=== PATIENT | female | born 1985 | race Caucasian/White ===

== ENCOUNTER → 2020-03-01 14:02 | Outpatient (BNVA) | payer BC, SELFPAY | PROVIDERS: PCP Internal Medicine; Visit Provider Obstetrics & Gynecology ==

== ENCOUNTER 2020-03-19 10:33 | Outpatient (REF) | payer BC, SELFPAY ==
[2020-03-19 13:40] LABS: MANUAL DIFF FLAG NO
[2020-03-19 13:49] LABS: Basophils Percent Auto 0.2 % (0-2); Eosinophils Percent Auto 0.9 % (0-4); Hematocrit 39.3 % (37-47); Hemoglobin 13.5 g/dl (12.0-16.0); Imm Gran Abs Auto 0.01 X10*3/uL (0.00-0.03); Imm Gran Pct Auto 0.2 % (0.0-0.4); Lymphocytes Absolute Auto 1.8 X10*3/uL (1.2-4.9); Lymphocytes Percent Auto 41.6 % (20-40); Mean Corpuscular HGB Conc 34.4 g/dl (31.0-35.0); Mean Corpuscular Hemoglobin 30.2 pg (27.0-33.0); Mean Corpuscular Volume 87.9 fL (80-98); Monocytes Absolute Auto 0.3 X10*3/uL (0.1-1.2); Monocytes Percent Auto 6.9 % (2-11); Neutrophils Absolute Auto 2.2 X10*3/uL (2.0-8.3); Neutrophils Percent Auto 50.2 % (45-73); Platelet Count 226 X10*3/uL (160-400); Red Blood Count 4.47 X10*6/uL (4.20-5.50); Red Cell Distribution Width 11.9 % (11.0-16.0); White Blood Count 4.3 X10*3/uL (4.8-10.8)
[2020-03-19 14:09] LABS: Glucose Urine UA NEG (NEG); Leukocyte Esterase Urine NEG (NEG); Nitrite Urine NEG (NEG); PH 5.5 (5.0-8.0); Specific Gravity - Urine 1.025 (1.005-1.025); Urine Blood NEG (NEG); Urine Ketones NEG (NEG); Urine Protein NEG (NEG-TRACE)
[2020-03-19 14:13] LABS: Appearance Urine CLEAR; Color Urine YELLOW
[2020-03-19 14:48] LABS: Alanine Aminotransferase 20 U/L (0-31); Albumin Level 4.6 g/dL (3.5-5.0); Alkaline Phosphatase 80 U/L (39-117); Anion Gap 11 (12-20); Aspartate Amino Transferase 21 U/L (5-31); Bilirubin Total 0.7 mg/dL (0.0-1.0); Blood Urea Nitrogen 20 mg/dL (9-16); C Reactive Protein 0.02 mg/dL (< or = 0.50); Calcium 9.4 mg/dL (8.4-10.2); Carbon Dioxide 27 mmol/L (22-29); Chloride 105 mmol/L (96-108); Estimated Glomerular Filt Rate > 60; Glucose Fasting 79 mg/dL (60-99); Potassium 4.1 mmol/L (3.3-5.1); Sodium 139 mmol/L (135-145); Total Protein 7.4 g/dL (6.5-8.0)
[2020-03-19 15:00] LABS: Free T4 (Free Thyroxine) 0.95 ng/dL (0.71-1.85)
[2020-03-19 15:01] LABS: Thyroid Stimulating Hormone 1.28 uIU/mL (0.32-4.0)
[2020-03-20 12:36] LABS: HIV RNA PCR Qn Copies <20 NOT DETECTED copies/mL (NOT DETECTED); HIV RNA PCR Qn Log Copies <1.30 NOT DETECTED (NOT DETECTED)
[2020-03-20 15:47] LABS: Follicle Stimulating Hormone 6.5 mIU/mL; Prolactin 12.8 ng/mL
[2020-03-21 02:17] LABS: C. trachomatis RNA TMA DETECTED (NOT DETECTED); N. gonorrhoeae RNA TMA NOT DETECTED (NOT DETECTED)
[2020-03-22 14:23] LABS: Syphilis Screen Nonreactive (Nonreactive)
[2020-03-22 16:03] LABS: Vitamin B12 836 pg/mL (200-900)
[2020-03-24 15:06] LABS: Progesterone 5.4 ng/mL
[2020-03-26 08:52] LABS: Estrogen 179.7 pg/mL
== END 2020-03-19 10:34 | disposition home or self-care (01) ==
LOC: HO.10HDL 10:33
PROVIDERS: Visit Provider Internal Medicine
DX: N94.6 Dysmenorrhea, unspecified (principal); R19.7 Diarrhea, unspecified; R53.83 Other fatigue
CPT/HCPCS: 36415; 80053; 81003; 82607; 82672; 83001; 83002; 84144; 84146; 84439; 84443; 85025; 86140; 86780; 87491; 87536; 87591

== ENCOUNTER 2020-03-23 08:01 | Outpatient (REF) | payer BC, SELFPAY ==
[2020-03-24 08:22] LABS: BV Int Neg Control Negative (Negative); BV Int Pos Control Positive (Positive)
[2020-03-25 17:07] LABS: HPV mRNA E6/E7 Not Detected (Not Detected)
== END 2020-03-23 08:02 | disposition home or self-care (01) ==
LOC: HO.LAB 08:01
PROVIDERS: PCP Internal Medicine; Visit Provider Obstetrics & Gynecology
DX: Z01.419 Encounter for gynecological examination (general) (routine) without abnormal findings (principal); A56.09 Other chlamydial infection of lower genitourinary tract; Z11.51 Encounter for screening for human papillomavirus (HPV)
CPT/HCPCS: 87480; 87510; 87624; 87660; 88142

== ENCOUNTER 2020-07-20 16:25 | Outpatient (REF) | payer BC, SELFPAY ==
[2020-07-20 18:19] LABS: Free T4 (Free Thyroxine) 0.79 ng/dL (0.71-1.85); Thyroid Stimulating Hormone 1.37 uIU/mL (0.32-4.0)
[2020-07-21 07:44] LABS: ~HepC Num1 0.07 S/CO (0.00-0.79); ~Hepatitis C Antibody Nonreactive (Nonreactive)
[2020-07-21 07:51] LABS: HBsAGNum1 0.17 S/CO (0.00-0.99); Hepatitis B Surface Antigen Negative (Negative)
[2020-07-21 10:02] LABS: Triiodothyronine T3 Total 68 ng/dL (76-181)
== END 2020-07-20 16:26 | disposition home or self-care (01) ==
LOC: HO.LAB 16:25
PROVIDERS: Obstetrics & Gynecology; PCP Internal Medicine; Visit Provider Obstetrics & Gynecology Reproductive Endocrinology
DX: A56.09 Other chlamydial infection of lower genitourinary tract (principal); D34 Benign neoplasm of thyroid gland
CPT/HCPCS: 36415; 84439; 84443; 84480; 86803; 87340

== ENCOUNTER 2020-08-16 08:49 | Outpatient (REF) | payer BC, SELFPAY ==
[2020-08-16 10:25] LABS: Free T4 (Free Thyroxine) 1.07 ng/dL (0.71-1.85); Thyroid Stimulating Hormone 0.08 uIU/mL (0.32-4.0)
[2020-08-17 18:36] LABS: Triiodothyronine T3 Free 3.1 pg/mL (2.3-4.2); Triiodothyronine T3 Total 63 ng/dL (76-181)
== END 2020-08-16 08:50 | disposition home or self-care (01) ==
LOC: HO.LAB 08:49
PROVIDERS: PCP Internal Medicine; Visit Provider Obstetrics & Gynecology Reproductive Endocrinology
DX: E03.9 Hypothyroidism, unspecified (principal)
CPT/HCPCS: 36415; 84439; 84443; 84480; 84481

== ENCOUNTER 2021-01-18 14:03 | Outpatient (REF) | payer BC, SELFPAY ==
[2021-01-18 16:51] LABS: Free T4 (Free Thyroxine) 0.86 ng/dL (0.71-1.85); Thyroid Stimulating Hormone 1.67 uIU/mL (0.32-4.0)
== END 2021-01-18 14:04 | disposition home or self-care (01) ==
LOC: HO.LAB 14:03
PROVIDERS: PCP Internal Medicine; Visit Provider Internal Medicine Endocrinology, Diabetes & Metabolism
DX: E05.90 Thyrotoxicosis, unspecified without thyrotoxic crisis or storm (principal)
CPT/HCPCS: 36415; 84439; 84443; 84481

== ENCOUNTER 2021-05-16 08:12 | Outpatient (REF) | payer BC, SELFPAY ==
[2021-05-16 14:50] LABS: CT PCR NOT DETECTED (Not Detect.); NG PCR NOT DETECTED (Not Detect.)
[2021-05-17 08:42] LABS: BV Int Neg Control Negative (Negative); BV Int Pos Control Positive (Positive)
[2021-05-19 02:51] LABS: HPV mRNA E6/E7 rflx Not Detected (Not Detected)
== END 2021-05-16 08:13 | disposition home or self-care (01) ==
LOC: HO.LAB 08:12
PROVIDERS: PCP Internal Medicine; Visit Provider Obstetrics & Gynecology
DX: Z01.411 Encounter for gynecological examination (general) (routine) with abnormal findings (principal); Z11.51 Encounter for screening for human papillomavirus (HPV); Z11.3 Encounter for screening for infections with a predominantly sexual mode of transmission; N87.0 Mild cervical dysplasia
CPT/HCPCS: 87480; 87491; 87510; 87591; 87624; 87660; 88142

== ENCOUNTER 2021-08-02 14:20 | Outpatient (REF) | payer BC, SELFPAY ==
[2021-08-03 07:41] LABS: HBsAGNum1 2.51 S/CO (0.00-0.99); HIV AB/AG Nonreactive (Nonreactive); HIV Num 1 0.89 S/CO (0.00-0.99); ~HepC Num1 0.05 S/CO (0.00-0.79); ~Hepatitis C Antibody Nonreactive (Nonreactive)
[2021-08-03 08:18] LABS: Syphilis Screen Nonreactive (Nonreactive)
[2021-08-03 10:37] LABS: HBsAGNum2 0.19; HBsAGNum3 0.2
[2021-08-03 10:38] LABS: Hepatitis B Surface Antigen Negative (Negative); Hepatitis B Surface Antigen Nonreactive (Negative)
== END 2021-08-02 14:21 | disposition home or self-care (01) ==
LOC: HO.LAB 14:20
PROVIDERS: Absent Provider Internal Medicine; PCP Internal Medicine; Visit Provider Obstetrics & Gynecology
DX: Z11.3 Encounter for screening for infections with a predominantly sexual mode of transmission (principal); Z11.4 Encounter for screening for human immunodeficiency virus [HIV]
CPT/HCPCS: 36415; 86780; 86803; 87340; 87389

== ENCOUNTER 2021-08-03 12:03 | Outpatient (REF) | payer BC, SELFPAY ==
[2021-08-03 14:38] LABS: CT PCR NOT DETECTED (Not Detect.); NG PCR NOT DETECTED (Not Detect.)
== END 2021-08-03 12:04 | disposition home or self-care (01) ==
LOC: HO.LNP 12:03
PROVIDERS: PCP Internal Medicine; Visit Provider Internal Medicine
DX: Z20.2 Contact with and (suspected) exposure to infections with a predominantly sexual mode of transmission (principal)
CPT/HCPCS: 87491; 87591

== ENCOUNTER 2021-12-19 15:25 | Outpatient (REF) | payer BC, SELFPAY ==
[2021-12-20 12:37] LABS: BV Int Neg Control Negative (Negative); BV Int Pos Control Positive (Positive)
== END 2021-12-19 15:26 | disposition home or self-care (01) ==
LOC: HO.LNP 15:25
PROVIDERS: Visit Provider Advanced Practice Midwife
DX: Z11.3 Encounter for screening for infections with a predominantly sexual mode of transmission (principal)
CPT/HCPCS: 87480; 87510; 87660

== ENCOUNTER 2021-12-19 15:40 | Outpatient (REF) | payer BC, SELFPAY ==
[2021-12-19 16:40] LABS: Hematocrit 38.1 % (37.0-47.0); Hemoglobin 12.9 g/dl (12.0-16.0); Mean Corpuscular HGB Conc 33.9 g/dl (31.0-35.0); Mean Corpuscular Hemoglobin 30.3 pg (27.0-33.0); Mean Corpuscular Volume 89.4 fL (80.0-98.0); Mean Platelet Volume 10.5 fL (9.4-12.3); Platelet Count 289 X10*3/uL (160-400); Red Blood Count 4.26 X10*6/uL (4.20-5.50); Red Cell Distribution Width 12.2 % (11.0-16.0); White Blood Count 7.5 X10*3/uL (4.8-10.8)
[2021-12-19 17:25] LABS: Syphilis Screen Nonreactive (Nonreactive)
[2021-12-20 04:53] LABS: CT PCR NOT DETECTED (Not Detect.); NG PCR NOT DETECTED (Not Detect.)
[2021-12-20 08:22] LABS: HBsAGNum1 0.26 S/CO (0.00-0.99); HIV AB/AG Nonreactive (Nonreactive); HIV Num 1 0.15 S/CO (0.00-0.99); Hepatitis B Surface Antigen Negative (Negative); ~HepC Num1 0.11 S/CO (0.00-0.79); ~Hepatitis C Antibody Nonreactive (Nonreactive)
== END 2021-12-19 15:41 | disposition home or self-care (01) ==
LOC: HO.LAB 15:40
PROVIDERS: PCP Internal Medicine; Visit Provider Advanced Practice Midwife
DX: Z11.3 Encounter for screening for infections with a predominantly sexual mode of transmission (principal)
CPT/HCPCS: 85027; 86780; 86803; 87340; 87389; 87491; 87591

== ENCOUNTER 2022-01-28 08:29 | Outpatient (REF) | payer BC, SELFPAY ==
[2022-01-28 10:07] LABS: Free T4 (Free Thyroxine) 0.84 ng/dL (0.71-1.85); Insulin 5 uU/mL (2-29); Thyroid Stimulating Hormone 1.37 uIU/mL (0.32-4.0)
[2022-02-03 13:47] LABS: IGF-1 (Somatomedin C) 171 ng/mL (53-331); IGF-1 Z Score (Female) 0.4 SD (-2.0 - +2.0); Triiodothyronine T3 Total 87 ng/dL (76-181)
== END 2022-01-28 08:30 | disposition home or self-care (01) ==
LOC: HO.LAB 08:29
PROVIDERS: PCP Internal Medicine; Visit Provider Internal Medicine
DX: R63.5 Abnormal weight gain (principal); E03.9 Hypothyroidism, unspecified; N94.6 Dysmenorrhea, unspecified
CPT/HCPCS: 36415; 83525; 84305; 84439; 84443; 84480

== ENCOUNTER 2022-01-31 09:18 | Outpatient (REF) | payer BC, SELFPAY ==
[2022-02-08 17:59] LABS: Saliva Cortisol <0.03 mcg/dL
== END 2022-01-31 09:19 | disposition home or self-care (01) ==
LOC: HO.LNP 09:18
PROVIDERS: Visit Provider Internal Medicine
DX: R63.5 Abnormal weight gain (principal); E03.9 Hypothyroidism, unspecified; N94.6 Dysmenorrhea, unspecified
CPT/HCPCS: 82530

== ENCOUNTER 2022-02-01 23:57 | Outpatient (REF) | payer BC, SELFPAY ==
[2022-02-10 17:07] LABS: Saliva Cortisol <0.03 mcg/dL
== END 2022-02-01 23:58 | disposition home or self-care (01) ==
LOC: HO.LNP 23:57
PROVIDERS: Visit Provider Internal Medicine
DX: R63.5 Abnormal weight gain (principal); E03.9 Hypothyroidism, unspecified; N94.6 Dysmenorrhea, unspecified
CPT/HCPCS: 82530

== ENCOUNTER 2022-02-02 09:16 | Outpatient (REF) | payer BC, SELFPAY | END 2022-02-02 09:17 | disposition home or self-care (01) | LOC: HO.LNP 09:16 | PROVIDERS: Visit Provider Internal Medicine | DX: Z13.89 Encounter for screening for other disorder (principal) ==

== ENCOUNTER 2022-08-29 14:44 | Outpatient (REF) | payer BC, SELFPAY ==
[2022-08-31 12:38] LABS: BV Int Neg Control Negative (Negative); BV Int Pos Control Positive (Positive)
[2022-08-31 13:39] LABS: CT PCR NOT DETECTED (Not Detect.); NG PCR NOT DETECTED (Not Detect.)
== END 2022-08-29 14:45 | disposition home or self-care (01) ==
LOC: HO.LNP 14:44
PROVIDERS: PCP Internal Medicine; Visit Provider Obstetrics & Gynecology
DX: Z20.2 Contact with and (suspected) exposure to infections with a predominantly sexual mode of transmission (principal)
CPT/HCPCS: 0353U; 87480; 87510; 87660

== ENCOUNTER 2022-08-29 14:44 | Outpatient (AMB) | payer BC, SELFPAY ==
--- NOTE | 2022-08-29 14:48 | MHC.OFFVIS ---
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 No complaints. The patient is requesting STD screen. Last Pap/HPV was negative in 05/10 [facility] Medical History GILBERT I (cervical intraepithelial neoplasia I) Hx of metrorrhagia Tiredness Surgical History History of lobectomy of thyroid Hx of arthroscopy of left knee Hx of arthroscopy of right knee Family History Maternal Grandmother Breast cancer Maternal Aunt Ovarian cancer Social History Alcohol intake: current Gender identity: Female Female Reproductive History Menstrual Age of Menarche: 17 Duration of menses: 8-10 days Date of last menstrual period: 08/02/22 control method: none Total pregnancies: 0 Date of last pap smear: 05/17/21 (negative) History of abnormal pap smear: Yes Review of Systems Const All systems reviewed & are unremarkable except as noted in HPI and below Card Reports as per HPI Resp Reports as per HPI GI Reports as per HPI and Reports no additional complaints Reports as per HPI Physical Exam Vital Signs: Last Vital Signs BP 114/62 08/29/22 14:49 BMI result Body Mass Index 24.4 Const General: cooperative, healthy appearing and comfortable Chest Chest palpation & inspection: normal inspection of the chest and normal palpation of entire chest wall Breast/axilla inspection: normal inspection of the breasts and normal inspection of the axillae Breast/axilla palpation: normal palpation of the breasts, normal palpation of the axillae and no axillary lymphadenopathy Resp Effort & Inspection: normal respiratory effort Auscultation: clear to auscultation bilaterally Percussion: percussion normal Cardio Palpation: normal PMI Rate: regular rate Rhythm: regular rhythm Heart sounds: no murmurs and no rubs Peripheral pulses: Peripheral pulses 2+ throughout GI Inspection: Yes normal to inspection Palpation (GI): Soft to palpation, nontender, no guarding, not rigid and No hepatosplenomegaly present Percussion: Yes normal to percussion Auscultation: normal bowel sounds Rectal Exam - Female: deferred General: Yes bladder normal to palpation External Female Exam: No lesion Speculum Exam - Vagina: normal appearance of the vagina, normal palpation, normal vaginal discharge and not erythematous Speculum Exam - Cervix: normal appearance of the cervix and normal palpation Bimanual exam- vagina & uterus: normal bimanual exam, normal palpation, uterine size normal, bladder normal to palpation, consistency normal and normal palpation Bimanual Exam- Adnexa, other: normal adnexae, no masses and no tenderness Assessment & Plan Assessment & Plan (1) Well woman exam: Comment: History of GILBERT 1 in 19 followed by negative co testing in 2020 and 2021 Code(s): Z01.419 - Encounter for gynecological examination (general) (routine) without abnormal findings Plan: Cotesting not indicated this year. Counseled the patient about the recommended dietary allowance of 1000 mg of Calcium & 600 IU of vitamin D. The patient was instructed to perform monthly self-breast exams and to schedule an annual exam in a year; All questions answered and the patient verbalized understanding. Instructed the patient to schedule annual exam in a year (2) Screen for STD (sexually transmitted disease): Code(s): Z11.3 - Encounter for screening for infections with a predominantly sexual mode of transmission Plan: STD screening tests done includes: BV panel for trichomonas, GC/CT will send patient for serology std screening for HIV, RPR, Hep b s Ag, HepC Ab. Orders: Orders Hepatitis B Surface Antigen Today Z20.2 - Contact with and (suspected) exposure to infections with a predominantly sexual mode of transmission Hepatitis C Antibody Today Z20.2 - Contact with and (suspected) exposure to infections with a predominantly sexual mode of transmission HIV Ab/Ag Today Z20.2 - Contact with and (suspected) exposure to infections with a predominantly sexual mode of transmission Syphilis Screen Today Z20.2 - Contact with and (suspected) exposure to infections with a predominantly sexual mode of transmission Coding Level of Care Code Est Pt Prev Care 18-39y(70251) Diagnoses Well woman exam Z01.419 Screen for STD (sexually transmitted disease) Z11.3
[2022-08-29 14:49] VITALS: BP 114/62; BMI 24.4
== END 2022-08-29 16:13 | disposition home or self-care (01) ==
LOC: HO.HWS 14:44
PROVIDERS: PCP Internal Medicine; Visit Provider Obstetrics & Gynecology
DX: Z01.419 Encounter for gynecological examination (general) (routine) without abnormal findings (principal); Z11.3 Encounter for screening for infections with a predominantly sexual mode of transmission
CPT/HCPCS: 99395

== ENCOUNTER 2023-01-29 13:33 | Outpatient (AMB) | payer BC, SELFPAY ==
--- NOTE | 2023-01-29 13:37 | MHC.OFFVIS ---
Intake Vital Signs 01/29/23 13:39 Height 5 ft 4 in Weight 145 lb BMI 24.9 BP 90/58 L Intake Visit Reasons: Vaginal odor Intake Note: Std testing, vaginal smell that is not normal for her Assistance Specialist Required: No Information Interpreted: non-clinical & clinical Professor Of Latin American Studies: Professor Of Latin American Studies Present (Aidyn) Allergies penicillin V Allergy (Unknown, Verified 01/29/23 13:42) hives Penicillins [PENICILLINS] Allergy (Unknown, Verified 01/29/23 13:42) HIVES CILANTRO Allergy (Unknown, Uncoded 01/29/23 13:42) GI UPSET chlorhexaidine Adverse Reaction (Mild, Uncoded 01/29/23 13:42) swelling Medication List - Last Reconciled 01/29/23 by Kelly Partida CNM dulaglutide (Trulicity) 0.75 mg subcut QWEEK thyroid (pork) ([place] Thyroid) 15 mg PO DAILY Is last menstrual period known: Yes Last menstrual period: 01/15/23 Post menopausal: No HPI Vaginal odor HPI Details Patient is here could she wants to get checked for STDs she ended a relationship and may be becoming sexually active with another so she wants to get checked for everything in addition she was talking with her girlfriend about bacterial vaginosis and so she does not know if she was imagining an odor or if there was 1 but she thought she smelled something different and wants to get that checked out as well. 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 Her previous partner had a vasectomy so now she is contemplating whether not she goes to ParaGard IUD in order to avoid hormones or sticks with condoms she gets long periods as it is from 7-9 days so that is a concern as well She had part of her thyroid removed some years ago and it has taken quite a while to get her hormones balanced and she is extremely sensitive to any changes in TSH levels and feels differently with points difference she had the biopsychologist who she worked with closely and who had prescribed the Trulicity a help manage this as well as help her with the [place] Thyroid which she reacts much better to than the levothyroxine. She will be transitioning to a new biopsychologist because the 1 with whom she visited has moved on elsewhere, [facility] Medical History GILBERT I (cervical intraepithelial neoplasia I) Hx of metrorrhagia Tiredness Surgical History History of lobectomy of thyroid Hx of arthroscopy of right knee Hx of arthroscopy of left knee Family History Maternal Grandmother Breast cancer Maternal Aunt Ovarian cancer Social History Alcohol intake: current Gender identity: Female Female Reproductive History Menstrual Age of Menarche: 17 Duration of menses: 8-10 days Date of last menstrual period: 01/15/23 control method: none Total pregnancies: 0 Date of last pap smear: 05/17/21 (negative) History of abnormal pap smear: Yes (2018 [facility] +HPV) Physical Exam Vital Signs: Last Vital Signs BP 90/58 L 01/29/23 13:39 BMI result Body Mass Index 24.9 Other: Vagina is pink and moist cervix is nulliparous pink smooth healthy appearing with ectropion. Clear and white mucus consistent with antonio ovulatory changes. No abnormal discharge witnessed. External Female Exam: normal external appearance and normal appearance of the urethra Speculum Exam - Vagina: normal appearance of the vagina and normal vaginal discharge Speculum Exam - Cervix: normal appearance of the cervix and Cervical os closed Assessment & Plan Assessment & Plan (1) Screen for STD (sexually transmitted disease): Code(s): Z11.3 - Encounter for screening for infections with a predominantly sexual mode of transmission (2) Counseling for control, intrauterine device: Code(s): Z30.09 - Encounter for other general counseling and advice on contraception Plan Reviewed teaching in detail about Gardnerella and Sharon and there common presence and that they do not need to be treated unless they are symptomatic. If either shows up she may opt for treatment but I recommend less is best and the vaginal treatment over the p.o. treatment and described why. Detail teaching done. For now she will use condoms if she needs to and keep aware of her cycles which she does and reviewed symptoms of ovulation which she appears to be approaching. Also she is considering a ParaGard however 1 concern is she gets long periods as it is she is reluctant to go to any hormonal method as she is just getting her thyroid under good control now she is on the Trulicity via her biopsychologist because it was helping stabilize her with her weight fluctuations for her competitions with her power lifting. Discussed the fabric choices of leggings and how they can impact on perspiration and sensations with odor vaginally etc. as well She has labs that were ordered from August for STD screens for HIV hep B hep C and syphilis she never did those but she may. Testing was done today for gonorrhea chlamydia trichomoniasis Gardnerella and Sharon.. Orders: Orders Bacterial Vaginosis Panel Today N89.8 - Other specified noninflammatory disorders of vagina CT NG by PCR Today N89.8 - Other specified noninflammatory disorders of vagina Coding Level of Care Code Est Pt Level 3 (18356) Diagnoses Screen for STD (sexually transmitted disease) Z11.3 Counseling for control, intrauterine device Z30.09
[2023-01-29 13:39] VITALS: BP 90/58; BMI 24.9
== END 2023-01-29 14:22 | disposition home or self-care (01) ==
PROVIDERS: PCP Internal Medicine; Visit Provider Advanced Practice Midwife
DX: Z11.3 Encounter for screening for infections with a predominantly sexual mode of transmission (principal)
CPT/HCPCS: 99213

== ENCOUNTER 2023-01-29 13:33 | Outpatient (REF) | payer BC, SELFPAY ==
[2023-01-30 05:05] LABS: CT PCR NOT DETECTED (Not Detect.); NG PCR NOT DETECTED (Not Detect.)
[2023-01-30 13:00] LABS: BV Int Neg Control Negative (Negative); BV Int Pos Control Positive (Positive)
== END 2023-01-29 13:34 | disposition home or self-care (01) ==
LOC: HO.LNP 13:33
PROVIDERS: PCP Internal Medicine; Visit Provider Advanced Practice Midwife
DX: N89.8 Other specified noninflammatory disorders of vagina (principal); Z20.2 Contact with and (suspected) exposure to infections with a predominantly sexual mode of transmission
CPT/HCPCS: 0353U; 87480; 87510; 87660

== ENCOUNTER 2023-03-30 12:15 | Outpatient (REF) | payer BC, SELFPAY ==
[2023-03-30 12:35] LABS: MANUAL DIFF FLAG NO
[2023-03-30 13:22] LABS: Basophils Percent Auto 0.3 % (0-2); Eosinophils Percent Auto 0.3 % (0-4); Hematocrit 37.6 % (37.0-47.0); Hemoglobin 13.1 g/dl (12.0-16.0); Imm Gran Abs Auto 0.01 X10*3/uL (0.00-0.03); Imm Gran Pct Auto 0.2 % (0.0-0.4); Lymphocytes Absolute Auto 2.3 X10*3/uL (1.2-4.9); Lymphocytes Percent Auto 37.3 % (20-40); Mean Corpuscular HGB Conc 34.8 g/dl (31.0-35.0); Mean Corpuscular Hemoglobin 30.3 pg (27.0-33.0); Mean Platelet Volume 9.9 fL (9.4-12.3); Monocytes Absolute Auto 0.5 X10*3/uL (0.1-1.2); Neutrophils Absolute Auto 3.3 x10*3/uL (2.0-8.3); Neutrophils Percent Auto 53.9 % (45-73); Platelet Count 260 X10*3/uL (160-400); Red Blood Count 4.32 X10*6/uL (4.20-5.50); Red Cell Distribution Width 11.9 % (11.0-16.0)
[2023-03-30 14:08] LABS: Alanine Aminotransferase 20 U/L (0-31); Albumin Level 4.4 g/dL (3.5-5.0); Alkaline Phosphatase 54 U/L (39-117); Anion Gap 11 (12-20); Aspartate Amino Transferase 27 U/L (5-31); Bilirubin Total 0.5 mg/dL (0.0-1.0); Blood Urea Nitrogen 14 mg/dL (9-16); C Reactive Protein < 0.10 mg/dL (< or = 0.50); Calcium 9.5 mg/dL (8.4-10.2); Carbon Dioxide 26 mmol/L (22-29); Chloride 105 mmol/L (96-108); Cholesterol 182 mg/dL (<200); Estimated Glomerular Filt Rate 60; Glucose Random 84 mg/dL (60-115); HDL Cholesterol 80 mg/dL (>40); LDL Cholesterol Calculated 96 mg/dL (<100); Potassium 3.6 mmol/L (3.3-5.1); Sodium 138 mmol/L (135-145); Total Protein 7.3 g/dL (6.5-8.0); Triglycerides 34 mg/dL (<150)
[2023-03-30 14:26] LABS: Free T4 (Free Thyroxine) 0.82 ng/dL (0.71-1.85); Thyroid Stimulating Hormone 1.42 uIU/mL (0.32-4.0)
[2023-03-30 15:58] LABS: Vitamin B12 1004 pg/mL (200-900)
== END 2023-03-30 12:16 | disposition home or self-care (01) ==
LOC: HO.LAB 12:15
PROVIDERS: PCP Internal Medicine; Visit Provider Internal Medicine
DX: R07.9 Chest pain, unspecified (principal); R53.83 Other fatigue; R00.2 Palpitations
CPT/HCPCS: 36415; 80053; 80061; 82607; 83735; 84439; 84443; 85025; 86140

== ENCOUNTER → 2023-04-18 08:58 | Outpatient (REF) | payer BC, SELFPAY ==
--- NOTE | 2023-04-18 09:03 | CA_ITS ---
Acquisition Time: 2023-04-18 10:18:10 Total Exercise Time: 00:17:04 Test Indications: CP, FATIGUE Medications: SEE H Protocol: JO-ANN Max HR: 173 BPM 93% of Pred: 185 BPM Max BP: 142/058 mmHG Max Work Load: 20.3 METS Exercise stress test exercise 17 min 4 sec of Jo-Ann protocol achieving 95% and 20.3 METS, without anginal symptoms, without arrhythmias, with normotensive response to exercise, without EKG changes. Test reviewed with Dr. Lambert. Referred By: Aramis Campbell Overread By: Taisha Mercado
--- NOTE | 2023-04-18 10:00 | CA_ITS ---
Transthoracic Echocardiogram Patient (Last, First, Middle): Mervat Haley, Gender: Female Date of : 1985 Age: 37 Procedure Date: 04/18/2023 Procedure Type: Transthoracic Echocardiogram Location: OP Height: 165.1 cm Weight: 68.04 kg BSA: 1.75 m2 Heart Rate: bpm BP: 110 / 58 mmHg Bonus Clerk: BRIANNE Referring MD: Aramis Campbell MD Symptoms: ABD CHEST PAIN R10.9 Study Quality: Adequate ECG Rhythm: Sinus Conclusions: - The left ventricular systolic function is normal. The calculated ejection fraction is 64% by biplane method. - No obvious valvular pathology seen on this study. Findings Left Ventricle Normal left ventricular cavity size. There is normal left ventricular wall thickness. The left ventricular systolic function is normal. The calculated ejection fraction is 64% by biplane method. There is no evidence of regional wall motion abnormalities. Diastolic function is normal for age. LV peak GLS -21%. Right Ventricle Normal right ventricular cavity size and systolic function. Atria Both atria are normal in size. Aortic Valve There is a normal trileaflet aortic valve. There is no aortic valve stenosis. There is no aortic valve regurgitation. Mitral Valve The mitral valve appears normal. There is no mitral valve regurgitation. There is no mitral valve stenosis. Pulmonic Valve The pulmonic valve is likely normal. Tricuspid Valve Normal tricuspid valve structure. There is trace tricuspid valve regurgitation. There is no evidence of pulmonary hypertension. Great Vessels The asc aorta is normal in size. Venous The inferior vena cava is normal in size and collapses greater than 50% with inspiration. Pericardium/Pleural There is no evidence of pericardial effusion. Prior Study Comparison No prior study available for comparison. Recommendations, Care & Conclusions No obvious valvular pathology seen on this study. Measurements 2D Linear Measurements IVSd: 0.75 0.6-0.9/0.6-1.0 cm LVIDd: 5.00 3.9-5.3/4.2-5.9 cm LVIDd Index: 2.86 2.4-3.2/2.2-3.1 cm/m2 LVIDs: 3.32 2.0-3.6 cm LVPWd: 0.82 0.7-1.1 cm LV Mass: 165.07 67-162/88-224 g LV Mass Index: 94.33 43-95/49-115 g/m2 LVOT Diam: 1.80 3.0+(-)1.3 cm 2D Systolic Function EF 4C: 68.40 >55% EF 2C: 61.30 >55% EF BiP: 64.10 >55% Mitral Valve MV Pk E: 0.63 MV PK A: 0.40 MV Decel Time: 385.00 E/A: 1.60 E'Lateral: 18.00 E'Medial: 12.30 E/E' Med: 5.20 E/E' Lat: 3.50 PHT: 113.00 MVA PHT: 1.95 Decel [place]: 1.65 Aortic Valve AoV Pk Sudhakar: 1.33 AoV Mn Sudhakar: 0.92 AoV VTI: 0.32 AoV Pk Grad: 7.00 Aov Mn Grad: 4.00 JARET Cont.VTI: 2.31 LVOT LVOT Pk Sudhakar: 1.13 LVOT Mn Sudhakar: 0.80 LVOT VTI: 0.30 LVOT Pk Grad: 5.00 LVOT Mn Grad: 3.00 LVOT Diam: 1.80 LVOT Area: 2.54 Diastolic Function MV Pk E: 0.63 MV Pk A: 0.40 E/A: 1.60 E'Medial: 12.30 E/E' Med: 5.20 E' Laterial: 18.00 E/E' Lat: 3.50 Right Ventricle TAPSE (mm): 28.10 TVS' Sudhakar: 12.70 Tricuspid Valve TR Pk Sudhakar: 1.86 TR Pk Grad: 14.00 RA Press: 3.00 RVSP: 17.00 Great Vessels Aorta Sinus of Valsalva: 2.45 2.0-3.[address] [place]: 2.06 1.7-3.4 cm Ao Asc: 2.50 2.1-3.4 cm Ao Arch: 2.20 Updated in Other Vendor System with Status of Final Deniz Lambert MD electronically signed on 04/19/2023 7:25:40 AM with status of Final
== END ==
LOC: HO.CARD 08:58
PROVIDERS: PCP Internal Medicine; Visit Provider Internal Medicine
DX: R07.9 Chest pain, unspecified (principal)
CPT/HCPCS: 93017; 93306; 93356

== ENCOUNTER → 2023-04-18 09:03 | Outpatient (BNV) | payer BC, SELFPAY | PROVIDERS: PCP Internal Medicine; Visit Provider Nurse Practitioner | DX: R07.9 Chest pain, unspecified (principal) | CPT/HCPCS: 93016; 93018; 93306 ==

== ENCOUNTER → 2023-06-25 09:09 | Outpatient (REF) | payer BC, SELFPAY ==
--- NOTE | 2023-06-25 09:14 | HM_ITS ---
* Total monitoring time 7 days. * Underlying rhythm is sinus with an average rate of 69/Min. Occasional sinus tachycardia. * Rare supraventricular and ventricular ectopy. * No significant pauses or AV blocks. * Patient markers used in association with sinus rhythm and sinus tachycardia. * No diary events. MTDD
== END ==
LOC: HO.CARD 09:09
PROVIDERS: PCP Internal Medicine; Visit Provider Internal Medicine
DX: R00.2 Palpitations (principal)
CPT/HCPCS: 93242

== ENCOUNTER → 2023-06-25 09:14 | Outpatient (BNV) | payer BC, SELFPAY | PROVIDERS: PCP Internal Medicine; Visit Provider Internal Medicine | DX: R00.0 Tachycardia, unspecified (principal) | CPT/HCPCS: 93244 ==

== ENCOUNTER 2023-09-05 14:57 | Outpatient (AMB) | payer BC, SELFPAY ==
[2023-09-05 15:18] VITALS: BP 98/44; BMI 24.0
--- NOTE | 2023-09-05 15:18 | MHC.OFFVIS ---
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 No complaints, requesting STD screen Last Pap/HPV was in 04/12 was negative, the patient has history of GILBERT 1 in 2019 [facility] Medical History GILBERT I (cervical intraepithelial neoplasia I) Hx of metrorrhagia Tiredness Surgical History History of lobectomy of thyroid Hx of arthroscopy of right knee Hx of arthroscopy of left knee Family History Maternal Grandmother Breast cancer Maternal Aunt Ovarian cancer Social History Alcohol intake: current Gender identity: Female Female Reproductive History Menstrual Age of Menarche: 17 Date of last menstrual period: 08/26/23 Date of last pap smear: 05/17/21 Review of Systems Const All systems reviewed & are unremarkable except as noted in HPI and below Card Reports as per HPI Resp Reports as per HPI GI Reports as per HPI and Reports no additional complaints Reports as per HPI Physical Exam Vital Signs: Last Vital Signs BP 98/44 L 09/05/23 15:18 BMI result Body Mass Index 24.0 Const General: cooperative, healthy appearing and comfortable Chest Chest palpation & inspection: normal inspection of the chest and normal palpation of entire chest wall Breast/axilla inspection: normal inspection of the breasts and normal inspection of the axillae Breast/axilla palpation: normal palpation of the breasts, normal palpation of the axillae and no axillary lymphadenopathy Resp Effort & Inspection: normal respiratory effort Auscultation: clear to auscultation bilaterally Percussion: percussion normal Cardio Palpation: normal PMI Rate: regular rate Rhythm: regular rhythm Heart sounds: no murmurs and no rubs Peripheral pulses: Peripheral pulses 2+ throughout GI Inspection: Yes normal to inspection Palpation (GI): Soft to palpation, nontender, no guarding, not rigid and No hepatosplenomegaly present Percussion: Yes normal to percussion Auscultation: normal bowel sounds Rectal Exam - Female: deferred General: Yes bladder normal to palpation External Female Exam: No lesion Speculum Exam - Vagina: normal appearance of the vagina, normal palpation, normal vaginal discharge and not erythematous Speculum Exam - Cervix: normal appearance of the cervix and normal palpation Bimanual exam- vagina & uterus: normal bimanual exam, normal palpation, uterine size normal, bladder normal to palpation, consistency normal and normal palpation Bimanual Exam- Adnexa, other: normal adnexae, no masses and no tenderness Assessment & Plan Assessment & Plan (1) Well woman exam: Comment: History of GILBERT 1 in 19 followed by negative co testing in 2020 and 2021 Code(s): Z01.419 - Encounter for gynecological examination (general) (routine) without abnormal findings Category: Medical Plan: Cotesting done. Counseled the patient about the recommended dietary allowance of 1000 mg of Calcium & 600 IU of vitamin D. The patient was instructed to perform monthly self-breast exams and to schedule an annual exam in a year; All questions answered and the patient verbalized understanding. Instructed the patient to schedule annual exam in a year (2) Screen for STD (sexually transmitted disease): Code(s): Z11.3 - Encounter for screening for infections with a predominantly sexual mode of transmission Category: Medical Plan: STD screening tests done includes: BV panel for trichomonas, GC/CT will send patient for serology std screening for HIV, RPR, Hep b s Ag, HepC Ab. Instructions given the patient to schedule a follow-up appointment for repeat serology screen in 6 months for possible false negatives. Orders: Orders PAP + HPV E6/E7 rfx 18/45 Today Z01.419 - Encounter for gynecological examination (general) (routine) without abnormal findings, Z11.3 - Encounter for screening for infections with a predominantly sexual mode of transmission CT NG by PCR Today Z419 - Encounter for gynecological examination (general) (routine) without abnormal findings, Z11.3 - Encounter for screening for infections with a predominantly sexual mode of transmission Hepatitis C Antibody Today Z20.2 - Contact with and (suspected) exposure to infections with a predominantly sexual mode of transmission Hepatitis B Surface Antigen Today Z20.2 - Contact with and (suspected) exposure to infections with a predominantly sexual mode of transmission Bacterial Vaginosis Panel Today [id number] - Encounter for gynecological examination (general) (routine) without abnormal findings, Z11.3 - Encounter for screening for infections with a predominantly sexual mode of transmission HIV Ab/Ag Today Z20.2 - Contact with and (suspected) exposure to infections with a predominantly sexual mode of transmission Syphilis Screen Today Z20.2 - Contact with and (suspected) exposure to infections with a predominantly sexual mode of transmission Coding Level of Care Code Est Pt Prev Care 18-39y(47769) Diagnoses Well woman exam Z Screen for STD (sexually transmitted disease) Z3
== END 2023-09-05 15:51 | disposition home or self-care (01) ==
PROVIDERS: PCP Internal Medicine; Visit Provider Obstetrics & Gynecology
DX: Z01.419 Encounter for gynecological examination (general) (routine) without abnormal findings (principal); Z11.3 Encounter for screening for infections with a predominantly sexual mode of transmission
CPT/HCPCS: 99395

== ENCOUNTER 2023-09-05 14:57 | Outpatient (REF) | payer BC, SELFPAY ==
[2023-09-06 15:16] LABS: Bacterial Vaginosis PCR NEGATIVE (Negative); Candida Group PCR DETECTED (Not Detect); Candida glab krusei PCR NOT DETECTED (Not Detect); Trichomonas vaginalis PCR NOT DETECTED (Not Detect)
[2023-09-06 15:40] LABS: CT PCR NOT DETECTED (Not Detect.); NG PCR NOT DETECTED (Not Detect.)
[2023-09-11 16:37] LABS: HPV mRNA E6/E7 Not Detected (Not Detected)
== END 2023-09-05 14:58 | disposition home or self-care (01) ==
LOC: HO.LNP 14:57
PROVIDERS: PCP Internal Medicine; Visit Provider Obstetrics & Gynecology
DX: Z01.419 Encounter for gynecological examination (general) (routine) without abnormal findings (principal); Z11.51 Encounter for screening for human papillomavirus (HPV); Z20.2 Contact with and (suspected) exposure to infections with a predominantly sexual mode of transmission
CPT/HCPCS: 0352U; 87491; 87591; 87624; 88175

== ENCOUNTER 2023-10-17 07:23 | Outpatient (REF) | payer BC, SELFPAY ==
[2023-10-17 09:22] LABS: Syphilis Screen Nonreactive (Nonreactive)
[2023-10-17 09:25] LABS: HIV AB/AG Nonreactive (Nonreactive); HIV Num 1 0.05 S/CO (0.00-0.99); Hepatitis B Surface Antigen Negative (Negative); ~HepC Num1 0.12 S/CO (0.00-0.79); ~Hepatitis C Antibody Nonreactive (Nonreactive)
[2023-10-17 09:32] LABS: Thyroid Stimulating Hormone 2.86 uIU/mL (0.32-4.0)
== END 2023-10-17 07:24 | disposition home or self-care (01) ==
LOC: HO.LAB 07:23
PROVIDERS: PCP Internal Medicine; Visit Provider Obstetrics & Gynecology
DX: E89.0 Postprocedural hypothyroidism (principal); Z20.2 Contact with and (suspected) exposure to infections with a predominantly sexual mode of transmission
CPT/HCPCS: 36415; 84443; 86780; 86803; 87340; 87389

== ENCOUNTER 2023-11-28 15:07 | Outpatient (REF) | payer BC, SELFPAY ==
[2023-11-28 15:26] LABS: MANUAL DIFF FLAG NO
[2023-11-28 15:49] LABS: Basophils Percent Auto 0.3 % (0-2); Eosinophils Percent Auto 0.7 % (0-4); Hematocrit 37.5 % (37.0-47.0); Hemoglobin 12.9 g/dl (12.0-16.0); Imm Gran Abs Auto 0.01 X10*3/uL (0.00-0.03); Imm Gran Pct Auto 0.2 % (0.0-0.4); Lymphocytes Percent Auto 33.5 % (20-40); Mean Corpuscular HGB Conc 34.4 g/dl (31.0-35.0); Mean Corpuscular Hemoglobin 30.1 pg (27.0-33.0); Mean Corpuscular Volume 87.6 fL (80.0-98.0); Mean Platelet Volume 9.7 fL (9.4-12.3); Monocytes Absolute Auto 0.5 X10*3/uL (0.1-1.2); Monocytes Percent Auto 8.2 % (2-11); Neutrophils Absolute Auto 3.4 x10*3/uL (2.0-8.3); Neutrophils Percent Auto 57.1 % (45-73); Platelet Count 275 X10*3/uL (160-400); Red Blood Count 4.28 X10*6/uL (4.20-5.50); Red Cell Distribution Width 11.9 % (11.0-16.0); White Blood Count 5.9 X10*3/uL (4.8-10.8)
[2023-11-28 16:11] LABS: Alanine Aminotransferase 23 U/L (0-31); Albumin Level 4.4 g/dL (3.5-5.0); Alkaline Phosphatase 60 U/L (39-117); Anion Gap 11 (12-20); Aspartate Amino Transferase 26 U/L (5-31); Bilirubin Total 0.5 mg/dL (0.0-1.0); Blood Urea Nitrogen 16 mg/dL (9-16); Calcium 9.9 mg/dL (8.4-10.2); Carbon Dioxide 25 mmol/L (22-29); Chloride 109 mmol/L (96-108); Cholesterol 225 mg/dL (<200); Estimated Glomerular Filt Rate > 60; Glucose Random 91 mg/dL (60-115); Potassium 4.2 mmol/L (3.3-5.1); Sodium 141 mmol/L (135-145); Total Protein 7.4 g/dL (6.5-8.0)
[2023-11-28 16:26] LABS: Free T4 (Free Thyroxine) 0.83 ng/dL (0.71-1.85); Thyroid Stimulating Hormone 0.75 uIU/mL (0.32-4.0)
[2023-11-30 06:08] LABS: Triiodothyronine T3 Free 2.9 pg/mL (2.3-4.2)
== END 2023-11-28 15:08 | disposition home or self-care (01) ==
LOC: HO.LAB 15:07
PROVIDERS: PCP Internal Medicine; Visit Provider Internal Medicine
DX: E03.9 Hypothyroidism, unspecified (principal); R53.83 Other fatigue; G43.909 Migraine, unspecified, not intractable, without status migrainosus
CPT/HCPCS: 36415; 80053; 82465; 84439; 84443; 84481; 85025

== ENCOUNTER 2024-08-18 10:13 | Outpatient (REF) | payer BC, SELFPAY ==
[2024-08-18 12:44] LABS: HBsAGNum1 0.46 S/CO (0.00-0.99); HIV AB/AG Nonreactive (Nonreactive); HIV Num 1 0.07 S/CO (0.00-0.99); Hepatitis B Surface Antigen Negative (Negative); ~Hepatitis C Antibody Nonreactive (Nonreactive)
[2024-08-18 12:45] LABS: Syphilis Screen Nonreactive (Nonreactive)
[2024-08-18 20:56] LABS: Bacterial Vaginosis PCR NEGATIVE (Negative); Candida Group PCR DETECTED (Not Detect); Candida glab krusei PCR NOT DETECTED (Not Detect); Trichomonas vaginalis PCR NOT DETECTED (Not Detect)
[2024-08-18 21:49] LABS: CT PCR NOT DETECTED (Not Detect.); NG PCR NOT DETECTED (Not Detect.)
== END 2024-08-18 10:14 | disposition home or self-care (01) ==
LOC: HO.LAB 10:13
PROVIDERS: PCP Internal Medicine; Visit Provider Obstetrics & Gynecology
DX: Z20.2 Contact with and (suspected) exposure to infections with a predominantly sexual mode of transmission (principal)
CPT/HCPCS: 36415; 81515; 86780; 86803; 87340; 87389; 87491; 87591

== ENCOUNTER 2024-08-18 10:13 | Outpatient (AMB) | payer BC, SELFPAY ==
--- NOTE | 2024-08-18 10:21 | A.OFFVIS_ITS ---
Vital Signs 08/18/24 10:25 Height 5 ft 4 in Weight 142 lb BMI 24.4 BP 90/50 L Intake Visit Reasons: [employer] annual exam/donwesleysx4 Information Lead: Information Lead Present (Evelyn) Accompanied by: Self / Same As Patient Allergies penicillin V Allergy (Unknown, Verified 08/18/24 10:27) hives Penicillins (PENICILLINS) Allergy (Unknown, Verified 08/18/24 10:27) HIVES CILANTRO Allergy (Unknown, Uncoded 09/05/23 15:22) GI UPSET chlorhexaidine Adverse Reaction (Mild, Uncoded 09/05/23 15:22) swelling HPI Comments Details: Presenting for annual exam. No complaints. Last Pap/HPV was negative in 05/10 [facility] Medical History GILBERT I (cervical intraepithelial neoplasia I) Hx of metrorrhagia Tiredness Surgical History History of lobectomy of thyroid Hx of arthroscopy of right knee Hx of arthroscopy of left knee Family History Maternal Grandmother Breast cancer Maternal Aunt Ovarian cancer Social History Alcohol intake: current Gender identity: Female Female Reproductive History Menstrual Age of Menarche: 17 Date of last menstrual period: 08/03/24 control method: none Date of last pap smear: 05/16/21 (negative pap smear, negative hpv ) Review of Systems Const All systems reviewed & are unremarkable except as noted in HPI and below Card Reports as per HPI Resp Reports as per HPI GI Reports as per HPI and Reports no additional complaints Reports as per HPI Physical Exam Vital Signs: BMI result Body Mass Index 24.4 Const General: cooperative, healthy appearing and comfortable Chest Chest palpation & inspection: normal inspection of the chest and normal palpation of entire chest wall Breast/axilla inspection: normal inspection of the breasts and normal inspection of the axillae Breast/axilla palpation: normal palpation of the breasts, normal palpation of the axillae and no axillary lymphadenopathy Resp Effort & Inspection: normal respiratory effort Auscultation: clear to auscultation bilaterally Percussion: percussion normal Cardio Palpation: normal PMI Rate: regular rate Rhythm: regular rhythm Heart sounds: no murmurs and no rubs Peripheral pulses: Peripheral pulses 2+ throughout GI Inspection: Yes normal to inspection Palpation (GI): Soft to palpation, nontender, no guarding, not rigid and No hepatosplenomegaly present Percussion: Yes normal to percussion Auscultation: normal bowel sounds Rectal Exam - Female: deferred General: Yes bladder normal to palpation External Female Exam: No lesion Speculum Exam - Vagina: normal appearance of the vagina, normal palpation, normal vaginal discharge and not erythematous Speculum Exam - Cervix: normal appearance of the cervix and normal palpation Bimanual exam- vagina & uterus: normal bimanual exam, normal palpation, uterine size normal, bladder normal to palpation, consistency normal and normal palpation Bimanual Exam- Adnexa, other: normal adnexae, no masses and no tenderness Assessment & Plan Assessment & Plan (1) Well woman exam: Comment: History of GILBERT 1 in 19 followed by negative co testing in 2020 and 2021 Code(s): Z01.419 - Encounter for gynecological examination (general) (routine) without abnormal findings Category: Medical Plan: Cotesting not indicated this year. Counseled the patient about the recommended dietary allowance of 1000 mg of Calcium & 600 IU of vitamin D. The patient was instructed to perform monthly self-breast exams and to schedule an annual exam in a year; All questions answered and the patient verbalized understanding. Instructed the patient to schedule annual exam in a year (2) Screening for STD (sexually transmitted disease): Code(s): Z11.3 - Encounter for screening for infections with a predominantly sexual mode of transmission Category: Medical Plan: STD screening tests done includes: BV panel for trichomonas, GC/CT will send patient for serology std screening for HIV, RPR, Hep b s Ag, HepC Ab. Instructions given the patient to schedule a follow-up appointment for repeat serology screen in 6 months for possible false negatives. (3) Hypothyroidism: Code(s): E03.9 - Hypothyroidism, unspecified Category: Medical Plan: The patient is on thyroid med replacement will order TSH Orders: Orders Bacterial Vaginosis Panel Today Z11.3 - Encounter for screening for infections with a predominantly sexual mode of transmission HIV Ab/Ag Today Z20.2 - Contact with and (suspected) exposure to infections with a predominantly sexual mode of transmission Syphilis Screen Today Z20.2 - Contact with and (suspected) exposure to infections with a predominantly sexual mode of transmission CT NG by PCR Vag/Cerv Today Z11.3 - Encounter for screening for infections with a predominantly sexual mode of transmission Hepatitis B Surface Antigen Today Z20.2 - Contact with and (suspected) exposure to infections with a predominantly sexual mode of transmission Hepatitis C Antibody Today Z20.2 - Contact with and (suspected) exposure to infections with a predominantly sexual mode of transmission Coding Level of Care Code Est Pt Prev Care 18-39y(54555) Diagnoses Well woman exam Z01.419 Screening for STD (sexually transmitted disease) Z11.3 Hypothyroidism E03.9
[2024-08-18 10:25] VITALS: BP 90/50; BMI 24.4
--- OUTSIDE RECORDS SUMMARY | 2024-08-18 10:50 | XMS_ITS | Continuity of Care Document ---
Author Organization [facility] Address [address] [place] [address] Phone [phone] Social History Type Date Description Comments Sex Female Sex Unknown Medical Devices Description No Information Available Encounters Description No Information Available Assessments Description No Information Available Plan of Treatment No Information Available Functional Status Description No Information Available Mental Status Description No Information Available Referrals Description No Information Available
== END 2024-08-18 11:07 | disposition home or self-care (01) ==
LOC: HO.HWS 10:13
PROVIDERS: PCP Internal Medicine; Visit Provider Obstetrics & Gynecology
DX: Z01.419 Encounter for gynecological examination (general) (routine) without abnormal findings (principal); Z11.3 Encounter for screening for infections with a predominantly sexual mode of transmission; E03.9 Hypothyroidism, unspecified
CPT/HCPCS: 99395; 99459